=== PATIENT | female | born 1960 | race Caucasian/White ===

== ENCOUNTER 2021-05-15 11:42 | Day surgery (SDC) | payer OTHER ==
[~2021-05-15] VITALS: Ht 165.1 cm; Wt 88.9 kg
[~2021-05-15 11:42] MED LIST: LISI5; METF500
[2021-05-15] MEDS ORDERED: ZOLOFT25 MG (12:12)
[2021-05-15] MEDS ORDERED: PRAV20 (12:13)
[2021-05-15] MEDS ORDERED: IBUP200 (12:14)
[2021-05-15] MEDS ORDERED: ACET500 (12:14)
--- NOTE | 2021-05-15 13:50 | NUR ---
05/15/21 1350 Kathy Oliva VITALS TAKEN EVERY 2 MINUTES THROUGHOUT PROCEDURE BUT VITALS PRINT ONLY EVERY 5 MINUTES ON THE MONITOR AND CANNOT BE CHANGED PER BIOMED. PT STABLE.
== END 2021-05-15 14:10 | disposition home or self-care (01) ==
LOC: ORSCSDS 11:42
PROVIDERS: Surgery
PROC: 0DJD8ZZ Inspection of Lower Intestinal Tract, Via Natural or Artificial Opening Endoscopic (ICD-10-PCS; principal; 2021-05-15 13:00)
DX: Z12.11 Encounter for screening for malignant neoplasm of colon (principal); Z86.010 Personal history of colon polyps; F17.210 Nicotine dependence, cigarettes, uncomplicated; E11.9 Type 2 diabetes mellitus without complications; Z79.84 Long term (current) use of oral hypoglycemic drugs; Z79.899 Other long term (current) drug therapy
CPT/HCPCS: 82947; J2704; J7120

== ENCOUNTER → 2024-03-31 | Outpatient (CLI) | payer OTHER ==
[~2024-03-31] MED LIST changes: +ACET500; +IBUP200; +PRAV20; +ZOLOFT25 MG
[2024-04-10 10:11] LABS: HPV HIGH RISK BY TMA Not Detected; HPV SOURCE Cervical
== END ==
LOC: LAB SHORT 10:15 → LAB 10:15
PROVIDERS: Obstetrics & Gynecology
DX: Z01.419 Encounter for gynecological examination (general) (routine) without abnormal findings (principal)
CPT/HCPCS: 87624; G0123